=== PATIENT | female | born 1990 | race Caucasian/White ===

== ENCOUNTER 2019-03-23 09:36 | Emergency (ER) | payer OTHER ==
--- NOTE | 2019-03-23 09:52 | EDPHY ---
General Time Seen by Provider: 03/23/19 09:49 Narrative: CLINICAL IMPRESSION: [ ] ASSESSMENT/PLAN: [ ] DIFFERENTIAL DX: [ Differential includes but not limited to laryngitis, tracheitis, bronchitis, viral URI with cough, pharyngitis, pneumonia] ED PROCEDURES: [ See lab and/or imaging results below] ED COURSE: 10:00 a.m.: Patient seen and assessed by myself. Afebrile, no hypoxia, vital signs stable, tolerating secretions, plan for chest x-ray 10:45 a.m.: Chest x-ray results called to me by Dr. Prather. Patient appears to have an acute right perihilar infiltrate. X-ray images reviewed with the patient. Will plan to treat for pneumonia and have her follow up with primary care. Vital signs stable, no hypoxia, patient does not appear septic. Labs not obtained. CHIEF COMPLAINT: [Fever, sore throat, cough ] HPI: [ 28-year-old otherwise healthy female presents to the emergency department with complaints of 1 week of sore throat, low-grade fevers, cough, and burning in her chest. Patient reports no chronic underlying cardiopulmonary history or asthma. 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 She reports she has never had illnesses that last this long. She has been staying hydrated but has had difficulty eating. She is tolerating secretions. She has been taking aspirin for temperatures that have never been higher than 100.4. No reported rash. No travel outside the [place] Recently. She did not take anything prior to arrival today. She is not get a flu shot this year. She reports "my bones are hurting". No abdominal pain, nausea vomiting or diarrhea] PAST MEDICAL HISTORY: [None reported ] [See triage summary and nurse notes for addition applicable history ] Pertinent Past Surgical History: None reported Family History: [ Sister with a congenital heart abnormality, no other first- degree family relative with cardiopulmonary disease] Social History: [Quit smoking in August ] REVIEW OF SYSTEMS: A full 10 point review of systems was negative except for those mentioned in HPI. PHYSICAL EXAM: General Appearance: [Alert, oriented, appropriate, cooperative, NAD, hoarse voice, tolerating secretions, well hydrated, non-toxic appearing, VSS, no hypoxia.] HEENT: [TMs are clear bilaterally no perforation or FB, no injection, no evidence of serous or mucopurulent otitis. Oropharynx clear is no erythema or exudates, no tonsillar hypertrophy or asymmetry. Dentition without abnormality. No clinical evidence of retropharyngeal abscess or epiglottitis, floor of mouth soft] Eyes: [PERRLA, no acute vision change, nystagmus, swelling, discharge, pain or photosensitivity. Conjunctiva pink, no pallor or injection] Neck: [Supple, nontender, no lymphadenopathy, no midline pain, FROM, no meningismus.] Respiratory: [There are no retractions, lungs are clear to auscultation. No expiratory wheezing] Cardiac: [Regular rate and rhythm, no murmurs or gallops.] Skin: [Warm, dry, no rashes, no nodules on palpation.] MEDICAL DECISION MAKING: Patient was seen independently. Secondary supervising physician at time of evaluation was: [ Dr. Shrestha]. Diagnosis: [ ]. New, requires workup Summary: [See Assessment and Plan for summary of ED visit ] Clinical lab tests: [ ordered / reviewed]. Independent visualization of images, tracing, or specimens: [ Yes / No]. Decision to obtain medical records or history from someone other than the patient: [ ] Review / Summarize previous medical records: [ ] Discussed patient with another provider: [ ] Patient Progress: [ ]. - Diagnostics Imaging Results: Imaging Impressions Chest X-Ray 03/23/19 10:02 Impression: Right perihilar consolidation suggesting pneumonia. Radiographic follow-up is recommended to resolution. Findings discussed with Lebron ALLEN 03/23/2019 at 10:54. - History Smoking Status: Former smoker - Objective Vital Signs: Initial Vital Signs Temperature (C) 37.2 C 03/23/19 09:40 Heart Rate 87 03/23/19 09:40 Respiratory Rate 16 03/23/19 09:40 Blood Pressure 122/80 H 03/23/19 09:40 O2 Sat (%) 96 03/23/19 09:40 O2 Delivery Mode Room Air Allergies/Adverse Reactions: No Known Allergies Allergy (Unverified 03/23/19 09:39) Home Medications: Medication Instructions Recorded [facility] Gold 03/23/19 Aspirin 03/23/19 Azithromycin 250 mg PO DAILY #6 tablet 03/23/19 Dextromethorphan HBr 03/23/19 Guaifenesin 03/23/19 Theraflu Expressmax Cold Nt Lq 03/23/19 Departure - Departure Disposition: Home, Routine, Self-Care Clinical Impression: Pneumonia Qualifiers: Pneumonia type: due to unspecified organism Laterality: right Lung location: middle lobe of lung Qualified Code(s): J18.1 - Lobar pneumonia, unspecified organism Condition: Good Instructions: Azithromycin (By mouth), Community Acquired Pneumonia (ED) Additional Instructions: DISCHARGE INSTRUCTIONS FROM YOUR DOCTOR Thank you for visiting our emergency department today. You were treated by a physician head start assistant teacher today and your case was reviewed with our ED Attending physician. Please keep in mind that discharge from the emergency department does not mean that there is nothing wrong - it simply means that we have not identified an emergency condition that requires further evaluation or treatment in the hospital. You should always plan to follow up with primary care for re- evaluation of your condition in the next 2-3 days. If you have been referred to a specialist, please call as soon as possible (today or tomorrow) to schedule your follow up appointment at the appropriate time. YOUR CHEST X-RAY TODAY IS SUGGESTIVE OF A RIGHT MIDDLE LOBE PNEUMONIA. ANTIBIOTICS ARE BEING PRESCRIBED. IT IS VERY IMPORTANT TO MAKE A FOLLOW-UP APPOINTMENT WITH PRIMARY CARE FOR RECHECK AND REPEAT CHEST X-RAY IN 1-2 WEEKS. PLEASE RETURN TO THE EMERGENCY DEPARTMENT SOONER FOR WORSENING COUGH OR SHORTNESS OF BREATH, CHEST PAIN, HIGH FEVERS, DIFFICULTY BREATHING, SEVERE WEAKNESS OR FATIGUE, OR ANY OTHER CONCERNS. People present with illnesses and injuries in different ways, and it is always possible that we have missed something. You may always return for re-evaluation if symptoms worsen or if they are not improving or if you develop new/different symptoms. Again, thank you for choosing our emergency department. We hope that you feel better. Referrals: NONE *PRIMARY CARE P,. [Primary Care Provider] - As per Instructions Osmel Harmon MD [Medical Doctor] - 1-2 days without fail [facility],. [Clinic] - 1-2 days without fail Prescriptions: Azithromycin 250 mg PO DAILY #6 tablet
[2019-03-23 11:08] VITALS: BP 110/74
== END 2019-03-23 11:11 | disposition home or self-care (01) ==
DX: J18.1 Lobar pneumonia, unspecified organism (principal)